=== PATIENT | female | born 1990 | race Asian ===

== ENCOUNTER 2020-05-24 13:46 | Inpatient (IN) | payer OTHER, SELFPAY ==
[~2020-05-24] VITALS: Ht 162.6 cm; Wt 68.9 kg
[2020-05-24] MEDS ORDERED: LR 1,000 ML IV ONE (14:00)
[2020-05-24] MEDS ORDERED: LR 1,000 ML IV SCH (14:00)
[2020-05-24] MEDS ORDERED: OXYTOCIN/0.9 % SODIUM CHLORIDE 1,000 ML IV SCH (14:00)
[2020-05-24 14:18] LABS: MEAN CORPUSCULAR HGB CONC 34 % (32-36); PLATELET COUNT (AUTO) 113 K/uL (130-430); RED CELL DISTRIBUTION WIDTH 12.8 % (9.0-15.0)
[2020-05-24 14:27] LABS: BASOPHILS % (AUTO) 0.2 % (0.0-2.0); EOSINOPHILS % (AUTO) 0.4 % (0.0-4.0); HEMATOCRIT 38.7 % (36-48); LYMPHOCYTES # (AUTO) 1.3 K/uL (1.0-5.5); LYMPHOCYTES % (AUTO) 12.4 % (20.5-51.5); MEAN CORPUSCULAR HEMOGLOBIN 32 pg (27-31); MEAN CORPUSCULAR VOLUME 94 fL (79.0-98.0); MONOCYTES # (AUTO) 0.7 K/uL (0.0-1.0); MONOCYTES % (AUTO) 6.8 % (1.7-9.3); NEUTROPHILS # (AUTO) 8.2 K/uL (1.8-7.7); NEUTROPHILS % (AUTO) 80.2 % (40.0-70.0); RED BLOOD CELL COUNT(AUTO) 4.13 MIL/uL (4.2-6.2); WHITE BLOOD COUNT (AUTO) 10.2 K/uL (4.8-10.8)
[2020-05-24] MEDS ORDERED: MORPHINE SULFATE 10 MG/ML VIAL IVP ONE (14:30)
[2020-05-24] MEDS ORDERED: OXYTOCIN 10 UNIT/ML VIAL IM ONE (14:30)
[2020-05-24] MEDS ORDERED: MORPHINE 4 MG/ML INJ. SYRINGE IVP ONE (14:30)
[2020-05-24 14:39] VITALS: BP_SYST 116
[2020-05-24] MEDS ORDERED: OXYTOCIN 10 UNIT/ML VIAL ONE (14:41)
[2020-05-24] MEDS ORDERED: SENNOSIDES/DOCUSATE SODIUM 1 TAB TABLET(SENOKOT-S) PO PRN (15:30)
[2020-05-24] MEDS ORDERED: HYDROCORTISONE 0.5%, 28.35 GM TOPICAL CREAM TP PRN (15:30)
[2020-05-24] MEDS ORDERED: LANOLIN 7 GM OINT. TP PRN (15:30)
[2020-05-24] MEDS ORDERED: OXYTOCIN/0.9 % SODIUM CHLORIDE 1,000 ML IV ONE (15:30)
[2020-05-24] MEDS ORDERED: OXYCODONE/ACETAMINOPHEN 5-325 TABLET PO PRN ×2 (15:30)
[2020-05-24] MEDS ORDERED: HYDROcodone/ACETAMIN 5-325 MG TAB (NORCO/ VICODIN) PO PRN (15:30)
[2020-05-24] MEDS ORDERED: WITCH HAZEL LEAF 1 MED.PAD MED.PAD TP PRN (15:30)
[2020-05-24] MEDS ORDERED: NALOXONE HCL 0.4 MG/ML AMP (NARCAN) IVP PRN (15:30)
[2020-05-24] MEDS ORDERED: DERMOPLAST SPRAY TP PRN (15:30)
[2020-05-24] MEDS ORDERED: ANUSOL 1 EA SUPP.RECT (PREPARATION H) RC PRN (15:30)
[2020-05-24] MEDS ORDERED: METHYLERGONOVINE MALEATE 0.2 MG TABLET PO PRN (15:30)
[2020-05-24] MEDS: IBUPROFEN 600 MG TABLET PO SCH (17:52)
[2020-05-24] MEDS: DOCUSATE SODIUM 100 MG CAPSULE PO PRN (23:59)
[2020-05-25] MEDS: IBUPROFEN 600 MG TABLET PO SCH ×5 (05:50→23:46)
[2020-05-25 07:12] LABS: HEMATOCRIT 34.1 % (36-48); HEMOGLOBIN 11.4 g/dL (12.0-16.0)
[2020-05-25] MEDS ORDERED: LIDOCAINE PF 1% 30ML(POUR BTL) INJ ONE (07:32)
[2020-05-25] MEDS: DOCUSATE SODIUM 100 MG CAPSULE PO PRN (23:46)
[2020-05-26] MEDS: IBUPROFEN 600 MG TABLET PO SCH ×2 (06:00→09:32)
[2020-05-26] MEDS: DOCUSATE SODIUM 100 MG CAPSULE PO PRN (06:08)
[2020-05-26 18:10] LABS: FTA-Ab (T PALLIDUM) Non Reactive (Non Reactive)
== END 2020-05-26 10:30 | disposition home or self-care (01) | DRG 560 ==
LOC: SPU 13:46
PROVIDERS: ADMIT Obstetrics & Gynecology; ATTEND Obstetrics & Gynecology
PROC: 10E0XZZ Delivery of Products of Conception, External Approach (ICD-10-PCS; principal; 2020-05-24)
PROC: 0KQM0ZZ Repair Perineum Muscle, Open Approach (ICD-10-PCS; 2020-05-24)
DX: O70.1 Second degree perineal laceration during delivery (principal); Z37.0 Single live birth; Z20.828 Contact with and (suspected) exposure to other viral communicable diseases; Z3A.39 39 weeks gestation of pregnancy
CPT/HCPCS: 36415; 81002-TC; 85018-TC; 85025; 86592; 86780; 86886; 86900; 86901; J2001; J2270; J2590